=== PATIENT | female | born 1945 | race Two or more races ===

== ENCOUNTER 2019-10-21 09:00 | Outpatient (CLI) | payer MEDICARE, OTHER | END 2019-10-21 23:59 | disposition home or self-care (01) | LOC: WOU 09:00 | PROVIDERS: ATTEND Podiatrist Foot & Ankle Surgery | DX: L60.2 Onychogryphosis (principal); B35.1 Tinea unguium; M20.42 Other hammer toe(s) (acquired), left foot; L84 Corns and callosities; E11.9 Type 2 diabetes mellitus without complications; Z79.4 Long term (current) use of insulin; Z79.899 Other long term (current) drug therapy; Z86.31 Personal history of diabetic foot ulcer | CPT/HCPCS: G0463 ==

== ENCOUNTER 2019-11-25 08:45 | Outpatient (CLI) | payer MEDICARE, OTHER | END 2019-11-25 23:59 | disposition home or self-care (01) | LOC: WOU 08:45 | PROVIDERS: ATTEND Podiatrist Foot & Ankle Surgery | DX: L60.2 Onychogryphosis (principal); M20.42 Other hammer toe(s) (acquired), left foot; B35.1 Tinea unguium; L84 Corns and callosities; E11.9 Type 2 diabetes mellitus without complications; Z79.4 Long term (current) use of insulin; Z86.31 Personal history of diabetic foot ulcer; Z79.899 Other long term (current) drug therapy | CPT/HCPCS: G0463 ==

== ENCOUNTER 2020-02-03 08:15 | Outpatient (CLI) | payer MEDICARE, OTHER | END 2020-02-03 23:59 | disposition home or self-care (01) | LOC: WOU 08:15 | PROVIDERS: ATTEND Podiatrist Foot & Ankle Surgery | DX: S90.121A Contusion of right lesser toe(s) without damage to nail, initial encounter (principal); X58.XXXA Exposure to other specified factors, initial encounter; Y92.89 Other specified places as the place of occurrence of the external cause; B35.1 Tinea unguium; L60.2 Onychogryphosis; M20.42 Other hammer toe(s) (acquired), left foot; L84 Corns and callosities; E11.9 Type 2 diabetes mellitus without complications; Z79.4 Long term (current) use of insulin; Z79.899 Other long term (current) drug therapy | CPT/HCPCS: G0463 ==

== ENCOUNTER 2020-05-05 13:00 | Outpatient (CLI) | payer MEDICARE, OTHER | END 2020-05-05 23:59 | disposition home or self-care (01) | LOC: WOU 13:00 | PROVIDERS: ATTEND Podiatrist Foot & Ankle Surgery | DX: Z09 Encounter for follow-up examination after completed treatment for conditions other than malignant neoplasm (principal); Z86.31 Personal history of diabetic foot ulcer; B35.1 Tinea unguium; L60.2 Onychogryphosis; L84 Corns and callosities; M20.42 Other hammer toe(s) (acquired), left foot; Z79.4 Long term (current) use of insulin; Z79.899 Other long term (current) drug therapy | CPT/HCPCS: G0463 ==

== ENCOUNTER 2020-07-13 08:00 | Outpatient (CLI) | payer MEDICARE, OTHER | END 2020-07-13 23:59 | disposition home or self-care (01) | LOC: WOU 08:00 | PROVIDERS: ATTEND Podiatrist Foot & Ankle Surgery | DX: B35.1 Tinea unguium (principal); E11.9 Type 2 diabetes mellitus without complications; Z79.4 Long term (current) use of insulin; M20.42 Other hammer toe(s) (acquired), left foot; L60.2 Onychogryphosis; L84 Corns and callosities; M79.675 Pain in left toe(s); M79.674 Pain in right toe(s) | CPT/HCPCS: G0463 ==